=== PATIENT | female | born 1990 | race Caucasian/White ===

== ENCOUNTER 2017-11-25 12:45 | Emergency (ER) | payer OTHER, SELFPAY ==
--- NOTE | 2017-11-25 15:04 | ER ---
Nurse's Notes [facility] Name: Paula Do Age: 27 yrs Sex: Female : 1990 Arrival Date: 11/25/2017 Time: 12:52 Bed 11 Private MD: Diagnosis: Presentation: 11/25 13:16 Presenting complaint: Patient states: I haven't been able to find a doctor. I am 18 lk1 weeks and I haven't gotten my Rh negative shot yet. Transition of care: patient was not received from another setting of care. Onset of symptoms is unknown. Initial Sepsis Screen: Does the patient meet any 2 criteria? No. Patient's initial sepsis screen is negative. Does the patient have a suspected source of infection? No. Patient's initial sepsis screen is negative. Care prior to arrival: None. 13:16 Method Of Arrival: Ambulatory lk1 13:16 Acuity: AURELIA 5 lk1 Triage Assessment: 13:17 General: Appears in no apparent distress. Behavior is calm, cooperative, appropriate lk1 for age. Pain: Denies pain. 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 - Social history:: Smoking status: Patient/guardian denies using tobacco. Assessment: 15:02 Reassessment: Patient not present when called from lobby. Registration states that the aj1 patient came up to the desk and told them she was leaving about would be back in the morning. Vital Signs: 13:17 BP 117 / 70; Pulse 77; Resp 14; Temp 98.3(TE); Pulse Ox 99% on R/A; Weight 57.15 kg lk1 (R); Height 5 ft. 3 in. (160.02 cm) (R); Pain 0/10; 13:17 Body Mass Index 22.32 (57.15 kg, 160.02 cm) lk1 ED Course: 12:52 Patient arrived in ED. sb2 13:16 Triage completed. lk1 13:20 Arm band placed on right wrist. lk1 14:55 Lolis Stark RN is Primary Nurse. aj1 Administered Medications: No medications were administered Outcome: 15:03 Patient left the ED. aj1 Signatures: Lolis Stark RN RN aj1 Kathrin Chaparro RN RN lk1 Manjula Martinez2
== END 2017-11-25 15:03 | disposition left against medical advice (07) ==
LOC: ER 12:45
DX: Z02.9 Encounter for administrative examinations, unspecified (principal)
CPT/HCPCS: 99281

== ENCOUNTER 2017-12-03 19:57 | Emergency (ER) | payer OTHER ==
[2017-12-03 21:17] LABS: Absolute Lymphocytes (CBC) 3.7 K/uL (0.7-4.9); Absolute Monocytes 1.2 K/uL (0.1-1.3); Absolute Neutrophil 8.6 K/uL (1.8-8.0); Basophils % 0.3 % (0-1.3); Eosinophils % 2.1 % (0-4.4); Hematocrit 32.5 % (36.0-45.0); Lymphocytes % 26.4 % (15.3-44.8); MCH 28.7 pg (27.0-35.0); MCV 85.7 fL (80-100); MPV 7.1 fL (7.6-11.3); RBC Red Blood Cell Count 3.79 M/uL (3.86-4.86)
--- NOTE | 2017-12-03 21:17 | RAD REPORT ---
EXAM DESCRIPTION: CT - Head Brain Wo Cont - 12/03/2017 9:11 pm CLINICAL HISTORY: Blurred vision, possible CVA COMPARISON: None. TECHNIQUE: Axial 5 mm thick images of the head were obtained without IV contrast. All CT scans are performed using dose optimization technique as appropriate and may include automated exposure control or mA/KV adjustment according to patient size. FINDINGS: No intracranial hemorrhage, mass, edema or shift of mid-line structures. No acute infarcti on changes seen. No abnormal extra-axial fluid collections. Ventricles are normal. Mastoid air cells are clear and visualized portions of the paranasal sinuses are clear of significant finding. No acute bony findings. IMPRESSION: Negative non-contrast CT head examination.
[2017-12-03 21:20] LABS: Urine Blood 1+ (NEG); Urine Glucose NEGATIVE (NEG); Urine Protein NEGATIVE (NEG)
[2017-12-03 21:29] LABS: Protime INR 0.93
[2017-12-03 21:31] LABS: Bicarbonate 22 mEq/L (21-31); Glucose Level 85 mg/dL (65-120); Potassium 3.6 mEq/L (3.6-5.0); Sodium Level 133 mEq/L (135-145)
[2017-12-03 21:37] LABS: ALT/SGPT 10 IU/L (10-60); AST/SGOT 14 IU/L (10-42); Albumin 3.3 g/dL (3.2-5.5); Alkaline Phosphatase 51 IU/L (42-121); BUN Blood Urea Nitrogen 8 mg/dL (6-20); Bilirubin Direct < 0.1 mg/dL (0-0.2); Bilirubin Total 0.2 mg/dL (0.3-1.2); Creatine Phosphokinase 47 IU/L (22-269); Magnesium 1.7 mg/dL (1.8-2.5)
[2017-12-03 21:40] LABS: CKMB Creatine Kinase MB 1.4 ng/ml (0.3-4.0)
--- NOTE | 2017-12-03 22:59 | ER ---
Nurse's Notes [facility] Name: Paula Do Age: 27 yrs Sex: Female : 1990 Arrival Date: 12/03/2017 Time: 19:58 Bed 14 Private MD: Diagnosis: Unqualified visual loss, left eye, normal vision right eye;Other transient cerebral ischemic attacks and related syndromes Presentation: 12/03 20:08 Presenting complaint: Patient states: Numbness and tingling to face and left arm that ea started at six this afternoon. Pt reports she is nineteen weeks . Transition of care: patient was not received from another setting of care. Onset of symptoms was December 03, 2017. Risk Assessment: Do you want to hurt yourself or someone else? Patient reports no desire to harm self or others. Care prior to arrival: None. 20:08 Method Of Arrival: Ambulatory ea 20:08 Acuity: AURELIA 3 ea 22:08 Initial Sepsis Screen: Does the patient meet any 2 criteria? No. Patient's initial mb3 sepsis screen is negative. Does the patient have a suspected source of infection? No. Patient's initial sepsis screen is negative. Triage Assessment: 20:14 General: Appears uncomfortable, Behavior is calm, cooperative, appropriate for age. ea Pain: Complains of pain in left lower quadrant. 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 - Social history:: Smoking status: Patient uses tobacco products, denies chronic smoking, but will smoke occasionally. - Ebola Screening: : No symptoms or risks identified at this time. Screenin:08 Abuse screen: Denies threats or abuse. Nutritional screening: No deficits noted. mb3 Tuberculosis screening: No symptoms or risk factors identified. Fall Risk None identified. Assessment: 21:03 General: Appears in no apparent distress. comfortable, Behavior is calm, cooperative, mb3 appropriate for age. Pain: Denies pain. Neuro: Level of Consciousness is awake, alert, obeys commands, Oriented to person, place, time, situation, Appropriate for age Cco & President are equal bilaterally Moves all extremities. Full function Gait is steady, Speech is normal, Facial symmetry appears normal, Pupils are PERRLA, Intact. Cardiovascular: No deficits noted. Heart tones S1 S2 present Capillary refill < 3 seconds. Respiratory: Airway is patent Respiratory effort is even, unlabored, Respiratory pattern is regular, symmetrical, Breath sounds are clear bilaterally. GI: Abdomen is round Bowel sounds present X 4 quads. Abd is soft and non tender. : No signs and/or symptoms were reported regarding the genitourinary system. Musculoskeletal: No signs and/or symptoms reported regarding the musculoskeletal system. Vital Signs: 20:11 BP 112 / 70; Pulse 80; Resp 18; Temp 97.8; Pulse Ox 99% on R/A; Weight 58.97 kg; Height ea 5 ft. 3 in. (160.02 cm); Pain 0/10; 22:12 BP 106 / 68; Pulse 80; Resp 16; Temp 97.8; Pulse Ox 97% on R/A; mb3 20:11 Body Mass Index 23.03 (58.97 kg, 160.02 cm) ea Vitals: 20:52 Heart Tones at 140 to 150, to LLQ of abdomen. mb3 ED Course: 19:58 Patient arrived in ED. am2 20:11 Triage completed. ea 20:31 Tawanda Vincent NP is PHCP. pm1 20:31 Saul Juan MD is Attending Physician. pm1 20:51 Christiano Anderson, DORENE is Primary Nurse. mb3 20:54 Radiology exam delayed due to test not completed at this time. cw1 21:00 Inserted saline lock: 20 gauge in right forearm, using aseptic technique. Blood mb3 collected. 21:09 CT completed. Patient moved to CT via wheelchair. Patient moved back from CT. cw1 21:10 CT Head Brain wo Cont In Process Unspecified. EDMS 22:06 XRAY Chest (1 view) In Process Unspecified. EDMS 22:09 Patient has correct armband on for positive identification. Bed in low position. Call mb3 light in reach. Side rails up X 1. 23:03 IV discontinued, intact, bleeding controlled, No redness/swelling at site. Pressure mb3 dressing applied. Administered Medications: No medications were administered Outcome: 23:02 AMA AMA form signed mb3 23:02 Condition: stable 23:02 Instructed on the need for transfer. 23:04 Patient left the ED. mb3 Signatures: Dispatcher [employer] EDMS Neeta Dillard cw1 Tawanda Vincent, TIFFANIE BOILERMAKER'S ASSISTANT pm1 Katerina Collier am2 Kae Riley, RN RN Christiano Melendrez RN RN mb3
--- NOTE | 2017-12-03 22:59 | EDPHYS ---
Physician Documentation [facility] Name: Paula Do Age: 27 yrs Sex: Female : 1990 Arrival Date: 12/03/2017 Time: 19:58 Bed 14 Private MD: ED Physician Saul Juan HPI: 12/03 21:00 This 27 yrs old Female presents to ER via Ambulatory with complaints of pm1 Numbness Of Face, Numbness Of Hand, Loss Of Vision - left eye. 21:00 The patient presents to the emergency department with a vision problem, blurred vision, pm1 Left eye. Onset: The symptoms/episode began/occurred 1800 and lasted for 1 hour. Associated signs and symptoms: Pertinent negatives: fever, headache, Chest pain, shortness of breath. Current symptoms: Currently, the patient is not experiencing any symptoms, the patient feels back to baseline. The patient has not experienced similar symptoms in the past. Patient with left eye burliness onset at 1800 today. symptom lasted for 1 hour and completely resolved. Patient reports right eye normal. Left eye with burliness, unable to make out shapes, still able to see light, and painless. Prior to arrival to the ER patient reported 5 minutes of numbness to left side of face and left arm. No motor deficit or weakness ot face or left arm. 21:00 19 weeks , no care history. 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 - Social history:: Smoking status: Patient uses tobacco products, denies chronic smoking, but will smoke occasionally. - Ebola Screening: : No symptoms or risks identified at this time. ROS: 21:00 Constitutional: Negative for fever, chills, and weight loss, ENT: Negative for injury, pm1 pain, and discharge, Neck: Negative for injury, pain, and swelling, Cardiovascular: Negative for chest pain, palpitations, and edema, Respiratory: Negative for shortness of breath, cough, wheezing, and pleuritic chest pain, Abdomen/GI: Negative for abdominal pain, nausea, vomiting, diarrhea, and constipation, Back: Negative for injury and pain. 21:00 : Negative for injury, bleeding, discharge, and swelling, MS/Extremity: Negative for injury and deformity, Skin: Negative for injury, rash, and discoloration. 21:00 Eyes: Positive for blurry vision, Negative for pain, vision loss. 21:00 Neuro: Positive for numbness, Negative for altered mental status, dizziness, headache, seizure activity, weakness. Exam: 21:00 Constitutional: This is a well developed, well nourished patient who is awake, alert, pm1 and in no acute distress. Head/Face: Normocephalic, atraumatic. Eyes: Pupils equal round and reactive to light, extra-ocular motions intact. Lids and lashes normal. Conjunctiva and sclera are non-icteric and not injected. Cornea within normal limits. Periorbital areas with no swelling, redness, or edema. ENT: Nares patent. No nasal discharge, no septal abnormalities noted. Tympanic membranes are normal and external auditory canals are clear. Oropharynx with no redness, swelling, or masses, exudates, or evidence of obstruction, uvula midline. Mucous membranes moist. Neck: Trachea midline, no thyromegaly or masses palpated, and no cervical lymphadenopathy. Supple, full range of motion without nuchal rigidity, or vertebral point tenderness. No Meningismus. Chest/axilla: Normal chest wall appearance and motion. Nontender with no deformity. No lesions are appreciated. Cardiovascular: Regular rate and rhythm with a normal S1 and S2. No gallops, murmurs, or rubs. Normal PMI, no JVD. No pulse deficits. Respiratory: Lungs have equal breath sounds bilaterally, clear to auscultation and percussion. No rales, rhonchi or wheezes noted. No increased work of breathing, no retractions or nasal flaring. 21:00 Back: No spinal tenderness. No costovertebral tenderness. Full range of motion. Skin: Warm, dry with normal turgor. Normal color with no rashes, no lesions, and no evidence of cellulitis. MS/ Extremity: Pulses equal, no cyanosis. Neurovascular intact. Full, normal range of motion. 21:00 Abdomen/GI: Inspection: gravid appearance, is noted, Bowel sounds: normal, Palpation: abdomen is soft and non-tender. 21:00 Neuro: Orientation: is normal, Mentation: is normal, Cranial nerves: CN II- XII are normal as tested, Cerebellar function: normal finger to nose testing, Motor: moves all fours, strength is 5/5 in all extremities, Sensation: is normal, no obvious gross deficits, Deep tendon reflexes are 2+ (normal) in the right patellar, right Achilles, left patellar and left Achilles, Abnormal movements: there are no abnormal movements. Vital Signs: 20:11 BP 112 / 70; Pulse 80; Resp 18; Temp 97.8; Pulse Ox 99% on R/A; Weight 58.97 kg; Height ea 5 ft. 3 in. (160.02 cm); Pain 0/10; 22:12 BP 106 / 68; Pulse 80; Resp 16; Temp 97.8; Pulse Ox 97% on R/A; mb3 20:11 Body Mass Index 23.03 (58.97 kg, 160.02 cm) ea MDM: 20:32 Patient medically screened. pm1 21:00 ED course: Patient with NIHSS=0. All symptoms resolved. Patient is . Not a TPA pm1 candidate . 22:56 Data reviewed: vital signs. Data interpreted: Pulse oximetry: on room air is 97 %. pm1 Interpretation: normal. Counseling: I had a detailed discussion with the patient and/or guardian regarding: the historical points, exam findings, and any diagnostic results supporting the discharge/admit diagnosis, lab results, radiology results, the need to transfer to another facility, for higher level of care, [facility] does not immediately have the required specialist. 22:56 Refusal of service: The patient/guardian displays adequate decision making capability pm1 and despite a detailed discussion of alternatives, benefits, risks, and consequences refuses: Admission to the hospital for further work-up and treatment, Patient wants to go home and take her daughter home. Patient's significant other present in the rom and supports the patient's decision. 12/03 20:43 Order name: Basic Metabolic Panel; Complete Time: 22:36 pm1 12/03 20:43 Order name: BNP; Complete Time: 22:36 pm1 12/03 20:43 Order name: CBC with Diff; Complete Time: 22:36 pm1 12/03 20:43 Order name: Ckmb; Complete Time: 22:36 pm1 26 20:43 Order name: CPK; Complete Time: 22:36 pm12/03 20:43 Order name: LFT's; Complete Time: 22:36 pm12/03 20:43 Order name: Magnesium; Complete Time: 22:36 pm12/03 20:43 Order name: PT-INR; Complete Time: 22:36 pm12/03 20:43 Order name: Ptt, Activated; Complete Time: 22:36 pm12/03 20:43 Order name: Troponin (emerg Dept Use Only); Complete Time: 22:36 pm12/03 20:43 Order name: XRAY Chest (1 view) 12/03 20:43 Order name: CT Head Brain wo Cont; Complete Time: 22:36 pm12/03 20:43 Order name: Urine Dipstick--Ancillary (enter results); Complete Time: 22:36 [facility] 12/03 20:54 Order name: Urine --Ancillary (enter results); Complete Time: 22:36 [facility] 12/03 20:43 Order name: Cardiac monitoring; Complete Time: 22:10 pm12/03 20:43 Order name: EKG - Nurse/Tech 12/03 20:43 Order name: IV Saline Lock; Complete Time: 22:10 pm12/03 20:43 Order name: Labs collected and sent; Complete Time: 22:10 pm12/03 20:43 Order name: O2 Per Protocol; Complete Time: 22:10 pm12/03 20:43 Order name: O2 Sat Monitoring; Complete Time: 22:10 12/03 20:43 Order name: Urine Dipstick-Ancillary (obtain specimen); Complete Time: 22:10 pm1 Administered Medications: No medications were administered Disposition: 12/03/17 22:59 Patient has left against medical advice. Impression: Unqualified visual loss, left eye, normal vision right eye, Other transient cerebral ischemic attacks and related syndromes. - Patients states they are going to Home. - Condition is Undetermined. - Discharge Instructions: Visual Disturbances, Transient Ischemic Attack. Follow up: Emergency Department; When: As needed; Reason: Worsening of condition. - Problem is new. - Symptoms are resolved. Addendum: 12/06/2017 09:25 Co-signature as Attending Physician, Saul Drake MD I agree with the assessment and c klein plan of care. Signatures: Dispatcher [employer] EDMO Saul Juan MD MD cha Marinas, Patrick, TERRAZZO POLISHER HELPER TERRAZZO POLISHER HELPER pm1 Kae Riley, RN Christiano Sheldon ea RN RN mb3 Corrections: (The following items were deleted from the chart) 12/03 23:04 22:59 12/03/2017 22:59 Patients has left against medical advice. Impression: mb3 Unqualified visual loss, left eye, normal vision right eye; Other transient cerebral ischemic attacks and related syndromes. Patient states they are going to Home. Condition is Undetermined. Follow up: Emergency Department; When: As needed; Reason: Worsening of condition. Problem is new. Symptoms are resolved. pm1
--- NOTE | 2017-12-04 08:42 | RAD REPORT ---
EXAM DESCRIPTION: RAD - Chest Single View - 12/03/2017 10:05 pm CLINICAL HISTORY: Shortness of breath, visual changes COMPARISON: None. TECHNIQUE: AP portable chest image was obtained 3 hours. Abdominal shielding was utilized. Patien t consent forms signed . FINDINGS: Lungs are clear. Heart and vasculature are normal. No measurable pleural effusion and no p neumothorax. No gross bony abnormality seen. No acute aortic findings suspected. IMPRESSION: No acute cardiopulmonary process.
== END 2017-12-03 23:04 | disposition left against medical advice (07) ==
LOC: ER 19:57
DX: G45.8 Other transient cerebral ischemic attacks and related syndromes (principal); Z3A.19 19 weeks gestation of pregnancy; Z72.0 Tobacco use
CPT/HCPCS: 36415; 70450; 71045; 80048; 80076; 81003; 81025; 82550; 82553; 83735; 83880; 84484; 85025; 85610; 85730; 99284